=== PATIENT | female | born 1960 | race Two or more races ===

== ENCOUNTER 2025-04-02 18:45 | Emergency (ER) | payer OTHER ==
[~2025-04-02] VITALS: Ht 170.2 cm; Wt 62.2 kg
--- NOTE | 2025-04-02 19:37 | ED.PDOC ---
Musculoskeletal HPI Comments 64 y.o female presents to the ED for a chief complaint of left shoulder pain s/p injury. Patient was reaching over to her horse's halter when the horse pulled away and pulled patient vigorously. Patient states having limited ROM with tenderness on palpation and movement. Patient denies any head injuries. Chief Complaint: Upper Extremity Time Seen by MD: 19:23 Reviewed Notes: Nurses Notes, Medications, Allergies Allergies: Coded Allergies: NO KNOWN ALLERGIES (Unverified , 04/02/25) Information Source: Patient Mode of Arrival: Ambulatory Location: Left Extremity Location: Shoulder Timing: Hours Severity: Moderate Able to Move Extremity: No Bear Weight: Limited Pain: Moderate Mechanism: None Circumstances: Other Onset of Symptoms: After Trauma Symptoms: Pain DVT Risk Factors: NONE Associated signs and symptoms: Shoulder pain Past Medical History PAST MEDICAL HISTORY: Denies Surgical History: Denies all surgeries PLASTER MIXER History: No Pertinent PLASTER MIXER History Family History Family History: Reviewed,noncontributory to illness Social History Smoker: Non-Smoker Alcohol: Denies ETOH Use Drugs: Denies Drug Use Lives In: Home Constitutional: denies: chills, diaphoresis, fatigue, fever, malaise, sweats, weakness, others EENTM: denies: blurred vision, double vision, ear bleeding, ear discharge, ear drainage, ear pain, ear ringing, eye pain, eye redness, hearing loss, mouth pain, mouth swelling, nasal discharge, nose bleeding, nose congestion, nose pa in, photophobia, tearing, throat pain, throat swelling, voice changes, others Respiratory: denies: cough, hemoptysis, orthopnea, SOB at rest, shortness of breath, SOB with excertion, stridor, wheezing, others Cardiovascular: denies: chest pain, dizzy spells, diaphoresis, Dyspnea on exertion, edema, irregular heart beat, left arm pain, lightheadedness, palpitations, PND, syncope, others Gastrointestinal: denies: abdomen distended, abdominal pain, blood streaked bowels, constipated, diarrhea, dysphagia, difficulty swallowing, hematemesis, melena, nausea, poor appetite, poor fluid intake, rectal bleeding, rectal pain, vomiting, others Genitourinary: denies: abnormal vagina bleeding, burning, dyspareunia, dysuria, flank pain, frequency, hematuria, incontinence, pain, , vagina discharge, urgency, others Neurological: denies: dizziness, fainting, headache, left sided numbness, left sided weakness, numbness, paresthesia, pre-existing deficit, right sided numbness, right sided weakness, seizure, speech problems, tingling, tremors, weakness, others Musculoskeletal: reports: others (left shoulder pain ); denies: back pain, gout, joint pain, joint swelling, muscle pain, muscle stiffness, neck pain Integumetry: denies: bruises, change in color, change in hair/nails, dryness, laceration, lesions, lumps, rash, wounds, others Allergic/Immunocompromised: denies: Difficulty Healing, Frequent Infections, Hives, Itching, others Hematologic/Lymphatic: denies: anemia, blood clots, easy bleeding, easy bruising, swollen glands, others Endocrine: denies: excessive hunger, excessive sweating, excessive thirst, excessive urination, flushing, intolerance to cold, intolerance to heat, unexplained weight gain, unexplained weight loss, others Psychiatric: denies: anxiety, bipolar disorder, depression, hopeless, panic disorder, schizophrenia, sleepless, suicidal, others All Other Systems: Reviewed and Negative Physical Exam General Appearance: No Apparent Distress, Normal HEENT: Normal ENT Inspection, Pharynx Normal, TMs Normal Neck: Full Range of Motion, Non-Tender, Normal, Normal Inspection Respiratory: Chest Non-Tender, Lungs Clear, No Accessory Muscle Use, No Respiratory Distress, Normal Breath Sounds Cardiovascular: No Edema, No JVD, No Murmur, No Gallop, Normal Peripheral Pulses, Regular Rate/Rhythm Breast Exam: Deferred Gastrointestinal: No Organomegaly, Non Tender, No Pulsatile Mass, Normal Bowel Sounds, Soft Genitalia: Deferred Pelvic: Deferred Rectal: Deferred Extremities: Decreased range of motion, Tender (to the left deltoid with limited ROM) Musculoskeletal : Apperance: Normal Neurologic: Alert, work and family life consultant II-XII nml as Tested, No Motor Deficits, Normal Affect, Normal Mood, No Sensory Deficits Cerebellar Function: Normal Reflexes: Normal Skin: Dry, Normal Color, Warm Lymphatic: No Adenopathy Was a procedure done? Was a procedure done?: Yes Sedation Sedation?: Yes Informed consent obtained: Yes Sedation start time: 21:08 Sedation end time: 21:15 Sedation total time: 7 minutes Reduction Indication: Dislocation Sedation: Consents obtained, Sedation as ordered Intra-articular anesthetic lai: Yes Post-reduction x-ray show: Reduction, Good Alignment Informed consent obtained: Yes Risks/benefits/alt described: Yes Notes Patient tolerated sedation with reduction of the left anterior shoulder well. Patient was given 80mg Propofol for sedation, vital signs remained wnl before, during and after reduction procedure. Positive successful reduction. Patient placed in a mobilizer. Patient is alert at bedside with no complaints. Differential Diagnosis EXT Differential Diagnosis: Fracture, Sprain, Strain X-Ray, Labs, Meds, VS Vital Signs Date Time Temp Pulse Resp B/P (MAP) Pulse Ox O2 Delivery O2 Flow Rate FiO2 04/02/25 20:03 63 17 100 Room Air* 0 21 04/02/25 20:02 98.1 63 16 127/81 (96) 100 98.1 04/02/25 18:57 97.4 63 18 145/84 (104) 99 97.4 Current Medications Medications (Trade) Dose Ordered Sig/Nancy Route Start Time Stop Time Status Last Admin Ketorolac Tromethamine (Toradol Injection) 30 mg ONCE ONCE IM 04/02/25 19:45 04/02/25 19:46 DC 04/02/25 20:02 Propofol (Diprivan) 120 mg ONCE ONCE IV 04/02/25 21:00 04/02/25 21:01 DC 04/02/25 21:04 CLINICAL INDICATION: fall TECHNIQUE: 2 radiographic views of the left shoulder were obtained. Comparison: None FINDINGS/IMPRESSION: Anterior dislocation of the left humerus The visualized joint space is well maintained. The alignment is anatomical. There is no radiopaque foreign body. HS:Y X-Ray, Labs, Meds, VS Comment Initial x-ray of the left shoulder showed anterior dislocation Postreduction film shows good alignment of the left shoulder Patient advised she will need to follow up with PCP for orthopedic referral. Patient reports that her PCP does Orthopedics and she can follow up with them tomorrow. Patient advised to continue to wear shoulder immobilizer has a long as she can tell she follows up with the data capture specialist. Time of 1ST Reevaluation: 19:32 Reevaluation 1ST: Unchanged Patient Education/Counseling: Diagnosis, Treatment, Prognosis, Need For Follow Up (Follow up with the PCP in next available appointment.) Family Education/Counseling: No Family Present Departure 1 Departure Time of Disposition: 21:52 Impression: Primary Impression: Shoulder dislocation Qualified Codes: S43.005A - Unspecified dislocation of left shoulder joint, initial encounter Disposition: HOME / SELF CARE / HOMELESS Condition: Fair Discharged With: Self Critical Care Note Critical Care Time?: No Stability Stability form required: No I personally scribed for CHARLY KIDDP ([email or web address]) on 04/02/25 at 19:37. Electronically submitted by Patience Olmos ([facility]). I personally scribed for CHARLY KIDDP ([email or web address]) on 04/02/25 at 21:09. Electronically submitted by Patience Olmos ([facility]). I personally scribed for CHARLY KIDD BOX GLUER ([email or web address]) on 04/02/25 at 21:23. Electronically submitted by Patience Olmos ([facility]). CHARLY KIDD Apr 02, 2025 19:37
[2025-04-02 20:02] VITALS: TEMP 98.1
[2025-04-02] MEDS: KETOROLAC TROMETH 30 MG/ML 1ML VIAL IM ONE (20:02)
[2025-04-02 20:03] VITALS: PULSE 63; RESP 17; O2SAT 100
--- NOTE | 2025-04-02 20:25 | DVH ---
CLINICAL INDICATION: fall TECHNIQUE: 2 radiographic views of the left shoulder were obtained. Comparison: None FINDINGS/IMPRESSION: Anterior dislocation of the left humerus The visualized joint space is well maintained. The alignment is anatomical. There is no radiopaque foreign body. HS:Y
[2025-04-02] MEDS: PROPOFOL 10 MG/ML 20 ML IV ONE (21:04)
[2025-04-02 21:30] VITALS: BP 124/67; PULSE 56; RESP 12; O2SAT 100
--- NOTE | 2025-04-02 22:04 | DVH ---
CLINICAL INDICATION: POST REDUCTION TECHNIQUE: XY L SHOULDER 1V XRAY Comparison: XY L SHOULDER 2+ VIEW XRAY on DOS: 04/02/25 FINDINGS/IMPRESSION: : The humeral head is mildly high-riding. Otherwise, normal glenohumeral articulation. No evidence of fracture. Soft tissues are unremarkable.
== END 2025-04-02 22:26 | disposition home or self-care (01) ==
LOC: ER 18:45
DX: S43.015A Anterior dislocation of left humerus, initial encounter (principal); X50.9XXA Other and unspecified overexertion or strenuous movements or postures, initial encounter; Y93.89 Activity, other specified; Y92.89 Other specified places as the place of occurrence of the external cause; Y99.8 Other external cause status
CPT/HCPCS: 23650; 73020; 73030; 96372; 99285; J1885; J2704